=== PATIENT | male | born 1970 | race Caucasian/White ===

== ENCOUNTER 2018-07-27 09:14 | Emergency (ER) | payer OTHER ==
[2018-07-27 09:31] VITALS: RESP 16; O2SAT 100
--- NOTE | 2018-07-27 09:57 | C.PDOC ---
History Of Present Illness 47 y/o male presents to ED c/o throat burning, and chest pain for the last 2-3 days. He reports burning to front of neck, with radiation to mid chest which is worse with eating. "Feels like food gets stuck", last ate bread and butter at 08 :00. He is able to drink liquid after bread without difficulty. +frequent burping. Pt states he eats spicy foods frequently. Denies EtOH, smoking. Anicteric, no abdominal pain, nausea or vomiting. Not associated with change in position. Denies weight loss, and PMH. THROAT BURNING, CP X 2-3 DAYS. BURNING FRONT OF NECK, RADIATION MID CHEST WORSE W EATING. "FEELS LIKE FOOD GETS STUCK", LAST ATE @ 0800 BREAD W BUTTER. ABLE TO DRINK LIQUID AFTER BREAD WO DIFF. +FREQ BURPING. PS EATS SPICY FOODS FREQ. DENIES ETOH, SMOKING. ANICTERIC NO ABD PAIN, NV. NO ASSOC W POSITION. DENIES WT LOSS, PMH. EXAM NONTOXIC HEENT ANICTERIC, MMM; PHARYNX NEG LUNGS CTA B/L NO W/R/R CV RRR ABD NEG GOOD TURGOR REMAINDER NEG MDM PROBABLE REFLUX. EKG WNL. ADVISED PT WILL NEED GI OUTPT FU. GI MEDS, R/O ACS Time Seen by Provider: 07/27/18 09:27 Chief Complaint (Nursing): Chest Pain History Per: Patient History/Exam Limitations: no limitations Onset/Duration Of Symptoms: Days Current Symptoms Are (Timing): Still Present Past Medical History Reviewed: Historical Data, Nursing Documentation, Vital Signs Vital Signs: Last Vital Signs Temp 97.9 F 07/27/18 09:30 Pulse 68 07/27/18 09:30 Resp 16 07/27/18 09:30 BP 149/89 07/27/18 09:30 Pulse Ox 100 07/27/18 10:38 Family History: States: Unknown Family Hx - Social History Hx Alcohol Use: No Hx Substance Use: No - Immunization History Hx Tetanus Toxoid Vaccination: No Hx Influenza Vaccination: No Hx Pneumococcal Vaccination: No Review Of Systems Except As Marked, All Systems Reviewed And Found Negative. Constitutional: Negative for: Fever, Chills ENT: Positive for: Throat Pain Cardiovascular: Positive for: Chest Pain. Negative for: Palpitations Respiratory: Negative for: Shortness of Breath Gastrointestinal: Negative for: Nausea, Vomiting, Abdominal Pain Physical Exam - Physical Exam Appears: Non-toxic, No Acute Distress Skin: Normal Color, Warm, Dry, No Jaundice (anicteric), Other (good turgor) Head: Atraumatic, Normacephalic Eye(s): bilateral: Normal Inspection Oral Mucosa: Moist Throat: Normal, No Erythema, No Exudate, No Drooling Neck: Normal ROM, Supple Cardiovascular: Rhythm Regular Respiratory: Normal Breath Sounds, No Rales, No Rhonchi, No Wheezing Gastrointestinal/Abdominal: Soft, No Tenderness, No Guarding, No Rebound Extremity: Normal ROM Neurological/Psych: Oriented x3, Normal Speech ED Course And Treatment - Laboratory Results Result Diagrams: 07/27/18 10:40 07/27/18 10:40 ECG: Interpreted By Me ECG Rhythm: Sinus Rhythm ECG Interpretation: Normal Rate From EC O2 Sat by Pulse Oximetry: 100 Pulse Ox Interpretation: Normal - Radiology CXR: Interpreted by Me, Viewed By Me CXR Interpretation: Yes: No Acute Disease Reevaluation Time: 11:21 Reassessment Condition: Improved Medical Decision Making Medical Decision Making: Plan: Blood work CXR EKG Maalox Pepcid Protonix PROBABLE REFLUX. EKG WNL. ADVISED PT WILL NEED GI OUTPT FU. GI MEDS, R/O ACS Disposition Counseled Patient/Family Regarding: Studies Performed, Diagnosis, Need For Followup, Rx Given - Disposition Referrals: Ricardo Wade MD [Staff Provider] - [facility] [Outside] [facility] [Outside] Disposition: HOME/ ROUTINE Disposition Time: 11:21 Condition: IMPROVED Prescriptions: Famotidine [Pepcid AC] 10 mg PO QN #30 tablet Omeprazole Magnesium [Prilosec Otc] 20 mg PO QPM #30 tab Instructions: Acid Reflux (Gastroesophageal Reflux Disease), Adult (DC) Forms: [facility] (Greek) - Clinical Impression Clinical Impression: Chest pain, GERD (gastroesophageal reflux disease) - Scribe Statement The provider has reviewed the documentation as recorded by the Scribe KP All medical record entries made by the Scribe were at my direction and personally dictated by me. I have reviewed the chart and agree that the record accurately reflects my personal performance of the history, physical exam, medical decision making, and the department course for this patient. I have also personally directed, reviewed, and agree with the discharge instructions and disposition.
[2018-07-27] MEDS ORDERED: Alum-Mag Hydrox-Simethicone Susp (30 mL) PO STA (09:58)
[2018-07-27] MEDS ORDERED: Aluminum Hydroxide/Magnesium Hydroxide Susp (30 mL) ONE (10:09)
[2018-07-27 10:51] LABS: BASO # 0.1 K/uL (0.0-0.2); BASO % 0.9 % (0.0-2.0); EOS # 0.2 K/uL (0.0-0.7); EOS % 2.2 % (0.0-4.0); HEMOGLOBIN 15.3 g/dL (12.0-18.0); LYMPH # 2.2 K/uL (1.0-4.3); MEAN CELL VOLUME 88.8 fL (80.0-94.0); MEAN CORPUSCULAR HEMOGLOBIN 30.5 pg (27.0-31.0); MEAN CORPUSCULAR HGB CONC 34.4 g/dL (33.0-37.0); MEAN PLATELET VOLUME 8.3 fL (7.2-11.7); MONO # 0.4 K/uL (0.0-0.8); MONO % 6.1 % (0.0-10.0); NEUT # 3.9 K/uL (1.8-7.0); NEUT % 57.8 % (50.0-75.0); RBC 5.02 Mil/uL (4.40-5.90); RED CELL DISTRIBUTION WIDTH 12.7 % (11.5-14.5); WHITE BLOOD COUNT 6.7 K/uL (4.8-10.8)
[2018-07-27 11:03] LABS: ALB/GLOB RATIO 1.6 (1.0-2.1); ALBUMIN 4.4 g/dL (3.5-5.0); ALT/SGPT 38 U/L (21-72); AST/SGOT 31 U/L (17-59); BLOOD UREA NITROGEN 8 mg/dL (9-20); CALCIUM 9.8 mg/dl (8.6-10.4); GFR NON-AFRICAN AMERICAN > 60; LIPASE 217 U/L (23-300)
[2018-07-27 11:29] VITALS: BP 142/78; PULSE 74; TEMP 98
--- NOTE | 2018-07-27 12:55 | RAD ---
Date of service: 07/27/2018 HISTORY: chest pain COMPARISON: No prior. TECHNIQUE: Chest PA and lateral FINDINGS: LUNGS: Questionable minor minor linear atelectasis/ scarring changes left lung base PLEURA: No significant pleural effusion identified. No pneumothorax apparent. . Suspect mild biapical pleural thickening CARDIOVASCULAR: Normal. OSSEOUS STRUCTURES: No significant abnormalities. VISUALIZED UPPER ABDOMEN: Normal. OTHER FINDINGS: None. IMPRESSION: Questionable minor linear atelectasis and or scarring left lung base
== END 2018-07-27 12:28 | disposition home or self-care (01) ==
LOC: MERGE 09:14 → UNMERGE 09:14 → C.ER 09:14
DX: R07.9 Chest pain, unspecified (principal); K21.9 Gastro-esophageal reflux disease without esophagitis
CPT/HCPCS: 71046; 80053; 83690; 84484; 85025; 96374; 96375; 99284; C9113

== ENCOUNTER 2018-08-13 06:30 | Day surgery (SDC) | payer OTHER ==
[2018-08-12 11:33] VITALS: BMI 21.5
[2018-08-13] MEDS ORDERED: Lactated Ringer's 500 ML IV ONE (07:50)
--- NOTE | 2018-08-13 07:52 | CP.SDSHP ---
Same Day Surgery H & P - History Proposed Procedure: dysphagia. heartburn refractory to therapy - Previous Medical/Surgical History Comments: Denies PMH/PSH - Allergies Allergies: Allergies No Known Allergies Allergy (Verified 08/12/18 11:33) - Physical Exam Vital Signs: Vital Signs 08/13/18 06:47 Temperature 97.3 F L Pulse Rate 64 Respiratory 19 Rate Blood Pressure 131/82 O2 Sat by Pulse 99 Oximetry Mental Status: Alert & Oriented x3 Neuro: WNL Heart: WNL Lungs: WNL GI: WNL - Impression Impression: dysphagia. heartburn Pt. Evaluated Today:Candidate for Anesthesia & Procedure: Yes - Date & Time Date: 08/13/18 Time: 07:51 Short Stay Discharge - Short Stay Discharge Admitting Diagnosis/Reason for Visit: DYSPHAGIA, HEARTBURN, EPIGASTRIC PAIN Disposition: HOME/ ROUTINE
[2018-08-13] MEDS ORDERED: Lidocaine Hydrochloride 5 ML INJ ONE (07:54)
[2018-08-13] MEDS ORDERED: Propofol 10 mg/ml Inj (20 ML) ONE (07:54)
[2018-08-13] MEDS ORDERED: Pantoprazole 40 mg EC Tab PO ONE (08:15)
[2018-08-13 08:28] VITALS: O2SAT 100
[2018-08-13 09:54] VITALS: BP 118/80; PULSE 65; RESP 12; TEMP 97
== END 2018-08-13 09:30 | disposition home or self-care (01) ==
LOC: C.ENDO 06:30
PROVIDERS: ATTEND Internal Medicine Gastroenterology
DX: K21.0 Gastro-esophageal reflux disease with esophagitis (principal); K29.70 Gastritis, unspecified, without bleeding
CPT/HCPCS: 43239; 88305; 88312; 88342; J2704; J7120